=== PATIENT | female | born 1945 | race Caucasian/White ===

== ENCOUNTER 2020-08-31 04:46 | Inpatient (IN) ==
[2020-08-31] MEDS ORDERED: FUROSEMIDE 100 MG/10 ML VIAL IV STA (05:20)
[2020-08-31 05:41] LABS: Basophils # 0.1 10*3/uL (0.0-0.2); Basophils % 0.4 % (0.0-0.8); Eosinophils # 0.1 10*3/uL (0.0-0.87); Eosinophils % 0.5 % (0.00-10.9); Hematocrit 48.3 VOL% (35.7-47.0); Hemoglobin 15.5 GM/DL (12.0-16.0); Immature Granulocytes % 0.4 %; Immature Granulocytes Absolute 0.06 #; Lymphocytes # 1.5 10*3/uL (1.4-4.0); Lymphocytes % 10.3 % (21.3-54.2); Mean Corpuscular HGB Conc 32.1 GM/DL (32-36); Mean Corpuscular Volume 93.6 FL (87-102); Mean Platelet Volume 11.3 FL (9.6-12.0); Monocytes % 4.9 % (1.7-12.7); Neutrophils % 83.5 % (38.7-73.9); Platelet Count 241 T/CUMM (130-400); Red Blood Count 5.16 MC/CUMM (3.8-5.5); Red Cell Distribution Width 14.6 % (9.3-17.3); White Blood Count 14.7 T/CUMM (4-12)
[2020-08-31 05:49] LABS: PT Patient Result 10.4 SECS (9.8-11.9); Partial Thromboplastin Time 23.9 SECS (23.9-33.8)
[2020-08-31 06:05] LABS: Albumin 3.6 G/DL (3.4-5.0); Bilirubin,Total 0.9 MG/DL (0.2-1.0); Calcium 8.9 MG/DL (8.5-10.1); Osmolality,Calculated 285.8 MOS/KG (273-304); Potassium 3.9 MMOL/L (3.5-5.1); Total Protein 7.8 G/DL (6.4-8.2)
[2020-08-31 06:42] LABS: ABG Base Excess -6.8 MMOL/L (-2.5-2.5); ABG HCO3 21.1 MMOL/L (20-26); ABG PCO2 50.9 MM HG (35-48); ABG PH 7.235 (7.35-7.45); ABG PO2 252.5 MM HG (80-95); ABG TCO2 22.6 MMOL/L (23-27); Allen Test Positive
[2020-08-31] MEDS ORDERED: ALBUTEROL/IPRATROPIUM 3 ML NEB RESP TX PRN (08:05)
[2020-08-31] MEDS ORDERED: ACETAMINOPHEN 325 MG TABLET PO PRN (08:05)
[2020-08-31] MEDS ORDERED: ONDANSETRON 4 MG/2 ML VIAL IV PRN (08:05)
[2020-08-31] MEDS: ENOXAPARIN 40 MG/0.4 ML SYRINGE SUBCUT SCH (10:58)
[2020-08-31] MEDS: PANTOPRAZOLE 40 MG TABLET PO SCH (10:58)
[2020-08-31] MEDS ORDERED: THIAMINE 200 MG/2 ML VIAL IV ONE (11:57)
[2020-08-31] MEDS: FUROSEMIDE 40 MG/4 ML VIAL IV SCH ×2 (13:15→15:13)
[2020-08-31 15:26] LABS: CKMB % 2.9 %
[2020-08-31 15:33] LABS: Troponin I 0.123 NG/ML (0.00-0.045)
[2020-08-31] MEDS ORDERED: FUROSEMIDE 40 MG/4 ML VIAL IV SCH (16:00)
[2020-08-31] MEDS: SPIRONOLACTONE 25 MG TABLET PO SCH (17:45)
[2020-08-31] MEDS: CLOPIDOGREL 75 MG TABLET PO SCH (20:22)
[2020-08-31] MEDS: ROSUVASTATIN 10 MG TABLET PO SCH (20:22)
[2020-08-31] MEDS: ASPIRIN EC 81 MG TABLET PO SCH (20:22)
[2020-08-31] MEDS: METOPROLOL SUCCINATE XL 25 MG TABLET PO SCH (20:22)
[2020-08-31] MEDS: FOLIC ACID 1 MG TABLET PO SCH (20:22)
[2020-09-01] MEDS: LEVOTHYROXINE 88 MCG TABLET PO SCH (05:33)
[2020-09-01 06:04] LABS: CKMB % 2.5 %
[2020-09-01 06:32] LABS: Troponin I 0.06 NG/ML (0.00-0.045)
[2020-09-01 07:33] LABS: Osmolality,Calculated 278.7 MOS/KG (273-304); Potassium 3.2 MMOL/L (3.5-5.1); Risk Ratio 1.83; Thyroid Stimulating Hormone 5.19 uIU/ml (0.358-3.74); VLDL CHOLESTEROL 25.4 MG/DL
[2020-09-01 07:43] LABS: Calcium 8.4 MG/DL (8.5-10.1)
[2020-09-01] MEDS ORDERED: MAGNESIUM SULF RIDER 4 GM in PREMIX 1 EACH IV PRN (08:43)
[2020-09-01] MEDS: FUROSEMIDE 40 MG/4 ML VIAL IV SCH ×2 (09:10→16:40)
[2020-09-01] MEDS: THIAMINE 100 MG TABLET PO SCH (09:11)
[2020-09-01] MEDS: ENOXAPARIN 40 MG/0.4 ML SYRINGE SUBCUT SCH (09:11)
[2020-09-01] MEDS: MULTIVITAMIN (BEROCCA) TABLET PO SCH (09:11)
[2020-09-01] MEDS: LOSARTAN 25 MG TABLET PO SCH (09:11)
[2020-09-01] MEDS: chlordiazePOXIDE 10 MG CAPSULE PO PRN (09:11)
[2020-09-01] MEDS: SPIRONOLACTONE 25 MG TABLET PO SCH (09:11)
[2020-09-01] MEDS: POTASSIUM CHLORIDE 20 MEQ TABLET PO PRN (09:12)
[2020-09-01] MEDS: PANTOPRAZOLE 40 MG TABLET PO SCH (09:12)
[2020-09-01] MEDS: MAGNESIUM SULF RIDER 2 GM in PREMIX 1 EACH IV PRN ×2 (09:12→11:29)
[2020-09-01] MEDS ORDERED: POTASSIUM CHLORIDE 20 MEQ TABLET PO ONE (10:20)
[2020-09-01] MEDS: SPIRONOLACTONE 50 MG TABLET PO SCH (11:29)
[2020-09-01] MEDS: POTASSIUM CHLORIDE 20 MEQ TABLET PO SCH (20:56)
[2020-09-01] MEDS: METOPROLOL SUCCINATE XL 25 MG TABLET PO SCH (20:57)
[2020-09-01] MEDS: ROSUVASTATIN 10 MG TABLET PO SCH (20:57)
[2020-09-01] MEDS: FOLIC ACID 1 MG TABLET PO SCH (20:57)
[2020-09-01] MEDS: CLOPIDOGREL 75 MG TABLET PO SCH (20:57)
[2020-09-01] MEDS: ASPIRIN EC 81 MG TABLET PO SCH (20:57)
[2020-09-02 06:07] LABS: Basophils # 0.1 10*3/uL (0.0-0.2); Basophils % 0.6 % (0.0-0.8); Eosinophils # 0.3 10*3/uL (0.0-0.87); Eosinophils % 3.3 % (0.00-10.9); Hematocrit 43.8 VOL% (35.7-47.0); Hemoglobin 13.9 GM/DL (12.0-16.0); Immature Granulocytes % 0.3 %; Immature Granulocytes Absolute 0.02 #; Lymphocytes # 1.4 10*3/uL (1.4-4.0); Lymphocytes % 18.2 % (21.3-54.2); Mean Corpuscular HGB Conc 31.7 GM/DL (32-36); Mean Corpuscular Volume 94.6 FL (87-102); Mean Platelet Volume 10.8 FL (9.6-12.0); Monocytes % 10.4 % (1.7-12.7); Neutrophils % 67.2 % (38.7-73.9); Platelet Count 162 T/CUMM (130-400); Red Blood Count 4.63 MC/CUMM (3.8-5.5); Red Cell Distribution Width 14.6 % (9.3-17.3); White Blood Count 7.9 T/CUMM (4-12)
[2020-09-02] MEDS: LEVOTHYROXINE 88 MCG TABLET PO SCH (06:28)
[2020-09-02 06:35] LABS: Calcium 8.7 MG/DL (8.5-10.1); Osmolality,Calculated 285.1 MOS/KG (273-304); Potassium 3.7 MMOL/L (3.5-5.1)
[2020-09-02] MEDS: MULTIVITAMIN (BEROCCA) TABLET PO SCH (09:17)
[2020-09-02] MEDS: POTASSIUM CHLORIDE 20 MEQ TABLET PO SCH ×2 (09:17→21:16)
[2020-09-02] MEDS: THIAMINE 100 MG TABLET PO SCH (09:18)
[2020-09-02] MEDS: chlordiazePOXIDE 10 MG CAPSULE PO PRN (09:18)
[2020-09-02] MEDS: SPIRONOLACTONE 50 MG TABLET PO SCH (09:18)
[2020-09-02] MEDS: LOSARTAN 25 MG TABLET PO SCH (09:18)
[2020-09-02] MEDS: POTASSIUM CHLORIDE 20 MEQ TABLET PO PRN (09:18)
[2020-09-02] MEDS: ENOXAPARIN 40 MG/0.4 ML SYRINGE SUBCUT SCH (09:19)
[2020-09-02] MEDS: FUROSEMIDE 40 MG/4 ML VIAL IV SCH ×2 (09:22→16:05)
[2020-09-02] MEDS: PANTOPRAZOLE 40 MG TABLET PO SCH (09:23)
[2020-09-02] MEDS ORDERED: MAGNESIUM SULF RIDER 2 GM in PREMIX 1 EACH IV PRN (12:03)
[2020-09-02] MEDS ORDERED: POTASSIUM CHLORIDE RIDER 10 MEQ in PREMIX 1 EACH IV PRN (12:03)
[2020-09-02] MEDS ORDERED: DIAZEPAM 5 MG TABLET PO ONE (12:07)
[2020-09-02] MEDS ORDERED: diphenhydrAMINE CAP 50 MG CAPSULE PO ONE (12:07)
[2020-09-02] MEDS: ROSUVASTATIN 10 MG TABLET PO SCH (21:15)
[2020-09-02] MEDS: CLOPIDOGREL 75 MG TABLET PO SCH (21:16)
[2020-09-02] MEDS: METOPROLOL SUCCINATE XL 25 MG TABLET PO SCH (21:16)
[2020-09-02] MEDS: FOLIC ACID 1 MG TABLET PO SCH (21:16)
[2020-09-02] MEDS: ASPIRIN EC 81 MG TABLET PO SCH (21:16)
[2020-09-03 05:39] LABS: Basophils % 0.4 % (0.0-0.8); Eosinophils # 0.3 10*3/uL (0.0-0.87); Eosinophils % 2.8 % (0.00-10.9); Hematocrit 45.6 VOL% (35.7-47.0); Hemoglobin 14.6 GM/DL (12.0-16.0); Immature Granulocytes % 0.3 %; Immature Granulocytes Absolute 0.03 #; Lymphocytes # 1.7 10*3/uL (1.4-4.0); Lymphocytes % 19.1 % (21.3-54.2); Mean Corpuscular Volume 93.6 FL (87-102); Mean Platelet Volume 11.2 FL (9.6-12.0); Monocytes % 10.1 % (1.7-12.7); Neutrophils % 67.3 % (38.7-73.9); Platelet Count 180 T/CUMM (130-400); Red Blood Count 4.87 MC/CUMM (3.8-5.5); Red Cell Distribution Width 14.5 % (9.3-17.3)
[2020-09-03 05:56] LABS: Calcium 9.5 MG/DL (8.5-10.1); Potassium 4.5 MMOL/L (3.5-5.1)
[2020-09-03] MEDS: LEVOTHYROXINE 88 MCG TABLET PO SCH (06:08)
[2020-09-03] MEDS ORDERED: diphenhydrAMINE CAP 50 MG CAPSULE PO ONE (07:00)
[2020-09-03] MEDS ORDERED: DIAZEPAM 5 MG TABLET PO ONE (07:00)
[2020-09-03] MEDS: FUROSEMIDE 40 MG/4 ML VIAL IV SCH (08:46)
[2020-09-03] MEDS: THIAMINE 100 MG TABLET PO SCH (08:47)
[2020-09-03] MEDS: SPIRONOLACTONE 50 MG TABLET PO SCH (08:47)
[2020-09-03] MEDS: PANTOPRAZOLE 40 MG TABLET PO SCH (08:47)
[2020-09-03] MEDS: MULTIVITAMIN (BEROCCA) TABLET PO SCH (08:47)
[2020-09-03] MEDS: POTASSIUM CHLORIDE 20 MEQ TABLET PO SCH (08:47)
[2020-09-03] MEDS: LOSARTAN 25 MG TABLET PO SCH (09:33)
[2020-09-03] MEDS: ENOXAPARIN 40 MG/0.4 ML SYRINGE SUBCUT SCH (09:33)
[2020-09-03] MEDS ORDERED: HEPARIN/NACL 0.9% 2 UNITS/ML 2,000 UNIT/1,000 ML BAG IV ONE (09:48)
[2020-09-03] MEDS ORDERED: LIDOCAINE 1% 20 ML VIAL ONE (10:01)
[2020-09-03] MEDS ORDERED: HYDROmorphone 2 MG/1 ML VIAL ONE (10:01)
[2020-09-03] MEDS ORDERED: VERAPAMIL 5 MG/2 ML VIAL ONE (10:01)
[2020-09-03] MEDS ORDERED: MIDAZOLAM 2 MG/2 ML VIAL ONE (10:01)
[2020-09-03] MEDS ORDERED: NITROGLYCERIN DRIP 50 MG/250 ML BOTTLE IV ONE (10:01)
[2020-09-03 15:43] VITALS: BP 110/63
[2020-09-04] MEDS ORDERED: FUROSEMIDE 40 MG TABLET PO SCH (09:00)
== END 2020-09-03 15:55 | disposition home or self-care (01) | DRG 286 ==
LOC: N.ED 04:46 → SUATTDRO 08:05 → N.EDINP 08:05 → N.TELES 09:07
PROVIDERS: ADMIT Family Medicine; ATTEND Internal Medicine

== ENCOUNTER 2022-05-17 05:34 | Inpatient (IN) ==
[2022-05-17 06:22] LABS: INR 1.3; PT Patient Result 14.3 SECS (10.1-12.1); Partial Thromboplastin Time 32.6 SECS (23.7-32.9)
[2022-05-17 06:29] LABS: Albumin 3.2 G/DL (3.4-5.0); Bilirubin,Total 0.8 MG/DL (0.20-1.00); Calcium 8.4 MG/DL (8.5-10.1); Potassium 4.4 MMOL/L (3.5-5.1); Total Protein 6.8 G/DL (6.4-8.2)
[2022-05-17 06:35] LABS: Basophils # 0.1 10*3/uL (0.0-0.2); Basophils % 0.8 % (0.0-0.8); Eosinophils # 0.1 10*3/uL (0.0-0.87); Eosinophils % 0.8 % (0.00-10.9); Hematocrit 30.7 VOL% (35.7-47.0); Hemoglobin 8.9 GM/DL (12.0-16.0); Immature Granulocytes % 0.6 %; Immature Granulocytes Absolute 0.06 #; Lymphocytes # 0.9 10*3/uL (1.4-4.0); Lymphocytes % 8.4 % (21.3-54.2); Mean Corpuscular Volume 77.5 FL (87-102); Mean Platelet Volume 10.1 FL (9.6-12.0); Monocytes # 0.9 10*3/uL (0.11-0.8); Monocytes % 8.2 % (1.7-12.7); Neutrophils % 81.2 % (38.7-73.9); Platelet Count 422 T/CUMM (130-400); Red Blood Count 3.96 MC/CUMM (3.8-5.5); White Blood Count 10.6 T/CUMM (4-12)
[2022-05-17] MEDS ORDERED: MORPHINE 2 MG/1 ML SYRINGE IV STA (06:48)
[2022-05-17] MEDS ORDERED: FUROSEMIDE 40 MG/4 ML VIAL IV STA ×2 (06:48→06:51)
[2022-05-17 06:51] LABS: Anisocytosis 1+; Hypochromia Slight; Platelet Estimate Normal
[2022-05-17] MEDS ORDERED: ACETAMINOPHEN 325 MG TABLET PO PRN (10:09)
[2022-05-17] MEDS ORDERED: ZALEPLON 5 MG CAPSULE PO PRN (10:09)
[2022-05-17] MEDS ORDERED: NICOTINE 21 MG/24 HR PATCH TRANSDERM PRN (10:09)
[2022-05-17] MEDS ORDERED: hydrALAZINE 20 MG/1 ML VIAL IV PRN (10:09)
[2022-05-17] MEDS ORDERED: guaiFENesin/DM ER 600-30 MG TABLET PO PRN (10:09)
[2022-05-17] MEDS ORDERED: ONDANSETRON 4 MG/2 ML VIAL IV PRN (10:09)
[2022-05-17] MEDS ORDERED: diphenhydrAMINE CAP 25 MG CAPSULE PO PRN (10:09)
[2022-05-17] MEDS: ALBUTEROL/IPRATROPIUM 3 ML NEB RESP TX SCH ×4 (10:44→23:16)
[2022-05-17 11:06] LABS: Arterial Base Excess iSTAT -1 MMOL/L (-2.5-2.5); Arterial Bicarbonate iSTAT 23.2 MMOL/L (20-26); Arterial O2 Saturation iSTAT 97 % (95-100); Arterial PCO2 iSTAT 36 MM HG (35-48); Arterial PO2 iSTAT 84 MM HG (80-95); Arterial Total CO2 iSTAT 24 MMO/L (23-27); Arterial pH iSTAT 7.417 (7.35-7.45)
[2022-05-17 11:23] LABS: Hepatitis B Core IgM Quant < 0.05 Index; Hepatitis B Surface Ag Quant < 0.10 Index; Hepatitis B Surface Ag Result Non-Reactive (NonReactive); Hepatitis C Virus Ab Quant 0.02 Index; Hepatitis C Virus Ab Result Non-Reactive (NonReactive)
[2022-05-17] MEDS ORDERED: RIVAROXABAN 20 MG TABLET PO ONE (11:32)
[2022-05-17 12:08] LABS: Folate > 24.00 NG/ML (5.38-24.0); Vitamin B12 696 PG/ML (211-911)
[2022-05-17] MEDS: methylPREDNISolone SOD SUC 40 MG/1 ML VIAL IV SCH ×2 (12:56→21:02)
[2022-05-17 15:21] LABS: Basophils # 0.1 10*3/uL (0.0-0.2); Basophils % 0.6 % (0.0-0.8); Eosinophils # 0.1 10*3/uL (0.0-0.87); Hematocrit 30.7 VOL% (35.7-47.0); Immature Granulocytes % 0.6 %; Immature Granulocytes Absolute 0.07 #; Lymphocytes # 0.8 10*3/uL (1.4-4.0); Lymphocytes % 6.7 % (21.3-54.2); Mean Corpuscular HGB Conc 29.3 GM/DL (32-36); Mean Corpuscular Volume 78.7 FL (87-102); Mean Platelet Volume 10.3 FL (9.6-12.0); Monocytes # 0.7 10*3/uL (0.11-0.8); Monocytes % 5.9 % (1.7-12.7); Neutrophils % 85.2 % (38.7-73.9); Platelet Count 432 T/CUMM (130-400); Red Cell Distribution Width 19.1 % (9.3-17.3); White Blood Count 11.3 T/CUMM (4-12)
[2022-05-17] MEDS: FUROSEMIDE 40 MG/4 ML VIAL IV SCH (15:33)
[2022-05-17 16:23] LABS: Sedimentation Rate-Westergren 54 MM/HR (0-30)
[2022-05-17 16:43] LABS: Glucose,Urine (UA) Negative (Negative); Ketones,Urine Negative (Negative); Nitrite,Urine Negative (Negative); Protein,Urine Negative (Negative); Urine Appearance Clear (Clear); Urine Color Yellow (Yellow); Urine pH 6.5 (4.5-8.0)
[2022-05-17 16:44] LABS: Bilirubin,Urine Negative (Negative); Blood, Urine Negative (Negative); Urine Urobilinogen 0.2 eU/dL (<2.0)
[2022-05-17 16:45] LABS: Mucus,Urine Occasional /LPF (Occasional); RBC,Urine 1 /HPF (0-4); Squamous Epithelial Cell,Urine Occasional /HPF (0-10)
[2022-05-17] MEDS: THIAMINE 100 MG TABLET PO SCH (21:01)
[2022-05-17] MEDS: METOPROLOL SUCCINATE XL 25 MG TABLET PO SCH (21:01)
[2022-05-17] MEDS: ASCORBIC ACID 500 MG TABLET PO SCH (21:01)
[2022-05-17] MEDS: FOLIC ACID 1 MG TABLET PO SCH (21:01)
[2022-05-17] MEDS: EZETIMIBE 10 MG TABLET PO SCH (21:02)
[2022-05-17] MEDS: DOCUSATE SODIUM 100 MG CAPSULE PO SCH (21:02)
[2022-05-18] MEDS: ALBUTEROL/IPRATROPIUM 3 ML NEB RESP TX SCH ×6 (02:44→22:25)
[2022-05-18 04:56] LABS: Basophils % 0.1 % (0.0-0.8); Hemoglobin 8.5 GM/DL (12.0-16.0); Immature Granulocytes % 0.8 %; Immature Granulocytes Absolute 0.07 #; Lymphocytes # 0.5 10*3/uL (1.4-4.0); Lymphocytes % 5.8 % (21.3-54.2); Mean Corpuscular HGB Conc 29.3 GM/DL (32-36); Mean Corpuscular Volume 77.3 FL (87-102); Mean Platelet Volume 10.1 FL (9.6-12.0); Monocytes # 0.3 10*3/uL (0.11-0.8); Monocytes % 2.9 % (1.7-12.7); Neutrophils % 90.4 % (38.7-73.9); Platelet Count 393 T/CUMM (130-400); Red Blood Count 3.75 MC/CUMM (3.8-5.5); Red Cell Distribution Width 18.9 % (9.3-17.3)
[2022-05-18] MEDS: methylPREDNISolone SOD SUC 40 MG/1 ML VIAL IV SCH ×3 (05:11→20:42)
[2022-05-18 05:13] LABS: Calcium 7.8 MG/DL (8.5-10.1); Osmolality,Calculated 291.1 MOS/KG (273-304); Potassium 3.7 MMOL/L (3.5-5.1); Risk Ratio 2.54; VLDL Cholesterol 7.2 MG/DL
[2022-05-18] MEDS: RIVAROXABAN 20 MG TABLET PO SCH (09:00)
[2022-05-18] MEDS: FUROSEMIDE 40 MG/4 ML VIAL IV SCH (09:00)
[2022-05-18] MEDS: ASPIRIN EC 81 MG TABLET PO SCH (09:01)
[2022-05-18] MEDS: PANTOPRAZOLE 40 MG TABLET PO SCH (09:01)
[2022-05-18] MEDS: THIAMINE 100 MG TABLET PO SCH ×2 (09:01→20:42)
[2022-05-18] MEDS: FOLIC ACID 1 MG TABLET PO SCH ×2 (09:01→20:41)
[2022-05-18] MEDS: ASCORBIC ACID 500 MG TABLET PO SCH ×2 (09:01→20:41)
[2022-05-18] MEDS: DOCUSATE SODIUM 100 MG CAPSULE PO SCH ×2 (09:01→20:41)
[2022-05-18] MEDS ORDERED: LEVOTHYROXINE 88 MCG TABLET PO SCH (14:00)
[2022-05-18] MEDS: LEVOTHYROXINE 88 MCG TABLET PO SCH (14:56)
[2022-05-18] MEDS: METOPROLOL SUCCINATE XL 25 MG TABLET PO SCH (20:41)
[2022-05-18] MEDS: EZETIMIBE 10 MG TABLET PO SCH (20:41)
[2022-05-18] MEDS ORDERED: VITAMIN E 400 UNIT CAPSULE PO SCH (21:00)
[2022-05-18] MEDS ORDERED: LOSARTAN 25 MG TABLET PO SCH (21:00)
[2022-05-18] MEDS ORDERED: MONTELUKAST 10 MG TABLET PO SCH (21:00)
[2022-05-18] MEDS ORDERED: CHOLECALCIFEROL 1,000 UNIT TABLET PO SCH (21:00)
[2022-05-19] MEDS: ALBUTEROL/IPRATROPIUM 3 ML NEB RESP TX SCH ×3 (03:45→10:45)
[2022-05-19 05:03] LABS: Basophils % 0.1 % (0.0-0.8); Hematocrit 28.6 VOL% (35.7-47.0); Hemoglobin 8.3 GM/DL (12.0-16.0); Immature Granulocytes % 0.4 %; Immature Granulocytes Absolute 0.06 #; Lymphocytes # 0.6 10*3/uL (1.4-4.0); Lymphocytes % 3.9 % (21.3-54.2); Mean Corpuscular Volume 77.7 FL (87-102); Mean Platelet Volume 10.2 FL (9.6-12.0); Monocytes # 1.4 10*3/uL (0.11-0.8); NRBC # 0.02 10*3/uL; Neutrophils % 86.6 % (38.7-73.9); Platelet Count 432 T/CUMM (130-400); Red Blood Count 3.68 MC/CUMM (3.8-5.5)
[2022-05-19 05:20] LABS: Calcium 8.5 MG/DL (8.5-10.1); Osmolality,Calculated 288.3 MOS/KG (273-304); Potassium 3.5 MMOL/L (3.5-5.1)
[2022-05-19 05:41] LABS: Band Neutrophils 1 % (0-10); Hypochromia Slight; Lymphocytes 2 % (20-55); Microcytosis Slight; Platelet Estimate Adequate; Total Cells Counted 100
[2022-05-19] MEDS: LEVOTHYROXINE 88 MCG TABLET PO SCH (06:38)
[2022-05-19] MEDS: THIAMINE 100 MG TABLET PO SCH (08:30)
[2022-05-19] MEDS: FOLIC ACID 1 MG TABLET PO SCH (08:31)
[2022-05-19] MEDS: PANTOPRAZOLE 40 MG TABLET PO SCH (08:31)
[2022-05-19] MEDS: ASPIRIN EC 81 MG TABLET PO SCH (08:31)
[2022-05-19] MEDS: DOCUSATE SODIUM 100 MG CAPSULE PO SCH (08:31)
[2022-05-19] MEDS: methylPREDNISolone SOD SUC 40 MG/1 ML VIAL IV SCH (08:31)
[2022-05-19] MEDS: ASCORBIC ACID 500 MG TABLET PO SCH (08:31)
[2022-05-19] MEDS: RIVAROXABAN 20 MG TABLET PO SCH (08:31)
[2022-05-19] MEDS ORDERED: MULTIVITAMIN (CENTRUM) TABLET PO SCH (09:00)
[2022-05-19] MEDS ORDERED: FUROSEMIDE 40 MG TABLET PO SCH (09:00)
[2022-05-19 11:09] VITALS: BP 111/66
== END 2022-05-19 12:45 | disposition home or self-care (01) | DRG 190 ==
LOC: N.ED 05:34 → SUATTDRO 10:09 → N.EDINP 10:09 → N.3E 14:20
PROVIDERS: ADMIT Internal Medicine; ATTEND Internal Medicine